=== PATIENT | male | born 1935 | race Caucasian/White ===

== ENCOUNTER 2017-06-04 20:23 | Emergency (ER) | payer MEDICARE, BC ==
[~2017-06-04] VITALS: Ht 172.7 cm; Wt 68.0 kg
[~2017-06-04 20:23] MED LIST: AMLO1CAP10 PO; AMLO5TAB2 PO; CARV25TA2 PO; CLIN300C8 PO; HYDR-2868 PO; HYDR12.553 PO; LISI-334 PO; LOSA1TAB19 PO; LOSA50TA6 PO; POTA10CA PO; SULF1TAB24 PO
[2017-06-04 21:54] LABS: BASO # 1.1 x10^3/uL (0.0-0.2); BASO % 1 % (0-3); EOS % 0 % (0-3); HEMATOCRIT 36.8 % (39.0-53.0); HEMOGLOBIN 12.1 g/dL (13.0-17.5); LYMPH # 121.1 x10^3/uL (1.0-4.8); LYMPH % 70 % (24-48); MEAN CORPUSCULAR HEMOGLOBIN 28 pg (25-35); MEAN CORPUSCULAR HGB CONC 33 g/dL (31-37); MEAN CORPUSCULAR VOLUME 85 fL (79-100); MONO # 9.6 x10^3/uL (0.0-1.1); MONO % 6 % (0-9); NEUT # 42.1 x10^3uL (1.8-7.7); NEUT % 24 % (31-73); PLATELET COUNT 396 x10^3/uL (140-400); RED BLOOD COUNT 4.35 x10^6/uL (4.30-5.70); RED CELL DISTRIBUTION WIDTH 15.9 % (11.5-14.5)
[2017-06-04 22:10] LABS: ALBUMIN/GLOBULIN RATIO 1.7 (1.0-1.7); ALK PHOS 119 U/L (46-116); ALT (SGPT) 27 U/L (16-63); ANION GAP 11 (6-14); AST (SGOT) 52 U/L (15-37); BLOOD UREA NITROGEN 45 mg/dL (8-26); BUN/CREATININE RATIO 35 (6-20); CARBON DIOXIDE 30 mmol/L (21-32); CHLORIDE 94 mmol/L (98-107); CREATININE 1.3 mg/dL (0.7-1.3); GLUCOSE 124 mg/dL (70-99); LIPASE 529 U/L (73-393); POTASSIUM 5.8 mmol/L (3.5-5.1); SODIUM 135 mmol/L (136-145); TOTAL BILIRUBIN 1.1 mg/dL (0.2-1.0); TOTAL PROTEIN 6.4 g/dL (6.4-8.2)
[2017-06-04] MEDS ORDERED: IOHEXOL 300 MG/ML 75 ML VIAL. IV ONE (22:30)
[2017-06-04 22:31] LABS: BILIRUBIN,URINE NEG (NEG); CLARITY,URINE HAZY; COLOR,URINE YELLOW; GLUCOSE,URINE NEG (NEG)
[2017-06-04 22:32] LABS: AMORPHOUS SEDIMENT,UR PRESENT /HPF; BACTERIA,URINE 0 /HPF (0-FEW); HYALINE CASTS, URINE MOD /HPF; NITRITE,URINE NEG (NEG); SQUAMOUS EPITHELIAL CELL,UR FEW /LPF; UROBILINOGEN,URINE 0.2 mg/dL (0.2 mg/dL)
[2017-06-04 22:57] LABS: % LYMPHS 62 % (24-48); % MONOS 3 % (0-10); % SEGS 31 % (35-66); PLT ESTIMATE ADEQUATE (ADEQUATE)
--- NOTE | 2017-06-04 23:29 | RAD ---
CT Abdomen and Pelvis With Intravenous Contrast: History: Prostate cancer abdominal and back pain. Comparison: None. Technique: After administration of intravenous contrast administration, 60 mL Omnipaque-300, CT of the abdomen and pelvis was performed. Exposure: One or more of the following individualized dose reduction techniques were utilized for this examination: 1. Automated exposure control 2. Adjustment of the mA and/or kV according to patient size 3. Use of iterative reconstruction technique Findings: Evaluation of enteric structures may be limited by lack of oral contrast. There is also motion artifact, limiting evaluation. Images of lower chest demonstrate left pleural effusion, incompletely assessed. Small right pleural effusion is seen. Left hepatic lobe demonstrates cyst. Spleen and bilateral adrenal glands unremarkable. Aortic atherosclerosis is seen. Pancreas is without evidence of inflammation. Bilateral adrenal glands unremarkable. Evaluation for mass is limited by lack of oral contrast. There is a right inguinal hernia contains a portion of the cecum, but there is no evidence of obstruction. There is a large left inguinal hernia which contains loops of small bowel and colon, but there is no evidence of obstruction. Urinary bladder is unremarkable. Prostate is mildly enlarged. There is moderate compression at T9, age-indeterminate. There is severe compression at T12, age indeterminate. There is moderate compression at L2, age indeterminate. Impression: 1. Left greater than right pleural effusions, incompletely assessed. 2. Limited evaluation of the abdomen and pelvis. 3. Large left inguinal hernia containing portion of the colon and small bowel. No obstruction is seen. 4. Small right inguinal hernia containing a portion of the cecum. 5. Vertebral fractures at T9, T12, and L2, age indeterminate. Electronically signed by: Jordan Cardenas MD (06/04/2017 11:26 PM) [facility]
--- NOTE | 2017-06-04 23:32 | RAD ---
CT thoracic spine without contrast TECHNIQUE: Helical noncontrast CT imaging of the thoracic spine was acquired. HISTORY: Back pain, falls, prostate cancer. FINDINGS: T9 mild vertebral body compression fracture with 50 percent height loss and heterogeneous linear bone sclerosis subjacent of the superior endplate, no lucent fracture cleft is evident, although this could be an acute fracture. T2 vertebral superior endplate mild central compression deformity with 10 percent height loss and mild bone sclerosis of indeterminate age, no lucent fracture cleft is evident although this could be an acute fracture. T12 compression fracture with vertebral plana of the anterior and central segments and bone sclerosis, with 6 mm of bone retropulsion contributing to severe spinal canal stenosis. This demonstrates a sagittal oriented vertical lucent fracture cleft suggesting that this is an acute fracture best seen on the coronal images. Upper lumbar spine demonstrates age-indeterminate L2 compression fracture mild bone sclerosis however there are intact endplate osteophytes which could indicate that it is chronic. The remainder of the thoracic spine demonstrates intact vertebral body height and alignment. Chronic lower thoracic posterior rib deformities likely healed fractures with additional sclerotic probable healed rib fractures somewhat obscured by patient motion. Left lateral sixth rib fracture of indeterminate age with mild cortical offset and could be acute. Minimal right pleural effusion. Large left pleural effusion. 1 cm hypodense left thyroid lobe nodule. Bulky bilateral axillary and subpectoral adenopathy largest lymph nodes have short axis diameters of up to 17 mm. Left lower lobe collapse due to pleural effusion. IMPRESSION: 1. Acute vertebra plana T12 vertebral body compression fracture as described above. There is extensive bone sclerosis which could be due to bony impaction from the fracture although given history of prostate cancer a pathologic fracture from metastasis cannot be excluded. 2. Age-indeterminate compression fractures of the T2 and T9 vertebra could be acute. 3. L2 vertebral body compression fracture likely chronic. 4. Large left pleural effusion with collapse of the left lower lobe. 5. Bilateral axillary adenopathy. 6. Possible acute left lateral sixth rib fracture. Bilateral healed old rib fractures. Exposure: One or more of the following individualized dose reduction techniques were utilized for this examination: 1. Automated exposure control 2. Adjustment of the mA and/or kV according to patient size 3. Use of iterative reconstruction technique Electronically signed by: Stephen Cole MD (06/04/2017 11:29 PM) [facility] [place]
[2017-06-04] MEDS ORDERED: IV NORMAL SALINE 1,000ML 1,000 ML IV ONE (23:45)
--- NOTE | 2017-06-05 00:01 | PHYS DOC ---
Past History Past Medical History: A-Fib, Cancer Past Surgical History: Cancer Surgery Alcohol Use: None Drug Use: None Adult General Chief Complaint Chief Complaint: WEAKNESS/GENERALIZED HPI HPI Patient is a 81 year old M who presents with back pain and weakness. EMS states the patient has been on sitting on the toilet for the past 24 hours to weak to get off. Patient complains of increased leg swelling and back pain. Family called for a welfare check. Patient denies any fevers. Patient denies any chest pain shortness of breath. Patient denies any trauma to the back. Patient lives at home by himself. 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 Review of Systems Review of Systems GEN: Weakness HEENT: Denies blurred vision, sore throat CV: Denies chest pain RESP: Denies shortness of air, cough GI: Denies n/v/d NEURO: Denies confusion, dizziness MSK: Leg swelling and upper back pain Current Medications Current Medications Current Medications Medications (Trade) Dose Ordered Sig/Marzena Start Time Stop Time Status Last Admin Dose Admin Iohexol (Omnipaque 300 Mg/ml) 75 ml 1X ONCE 06/04/17 22:30 06/04/17 22:31 DC 06/04/17 22:30 75 ML Sodium Chloride 1,000 ml @ 1,000 mls/hr 1X ONCE 06/04/17 23:45 06/05/17 00:44 UNV 06/04/17 23:46 1,000 MLS/HR Allergies Allergies Allergies Coded Allergies Type Severity Reaction Last Updated Verified No Known Drug Allergies 06/04/17 No Physical Exam Physical Exam GEN.: mod distress. Alert and oriented, cachectic HEENT: Head is normocephalic, atraumatic NECK: Supple. LUNGS: Decreased breath sounds bilaterally at the bases, coarse breath sounds at the apex. HEART: Tachycardia irregular irregular, S1, S2 present. Peripheral pulses intact ABDOMEN: Soft, generalized abdominal tenderness, hypoactive bowel sounds, no rebound tenderness. EXTREMITIES: Without any cyanosis, +2 pitting edema to lower extremity bilaterally NEUROLOGIC: Normal speech, normal tone PSYCHIATRIC: Normal affect, normal mood. SKIN: No ulcerations Current Patient Data Vital Signs Vital Signs Date Time Temp Pulse Resp B/P (MAP) Pulse Ox O2 Delivery O2 Flow Rate FiO2 06/04/17 23:10 117 28 156/85 (108) 92 Nasal Cannula 2.0 06/04/17 20:53 97.5 Lab Results Laboratory Tests Test 06/04/17 21:15 06/04/17 21:18 06/04/17 21:40 White Blood Count 174.0 x10^3/uL (4.0-11.0) *H Red Blood Count 4.35 x10^6/uL (4.30-5.70) Hemoglobin 12.1 g/dL (13.0-17.5) L Hematocrit 36.8 % (39.0-53.0) L Mean Corpuscular Volume 85 fL (79-100) Mean Corpuscular Hemoglobin 28 pg (25-35) Mean Corpuscular Hemoglobin Concent 33 g/dL (31-37) Red Cell Distribution Width 15.9 % (11.5-14.5) H Platelet Count 396 x10^3/uL (140-400) Neutrophils (%) (Auto) 24 % (31-73) L Lymphocytes (%) (Auto) 70 % (24-48) H Monocytes (%) (Auto) 6 % (0-9) Eosinophils (%) (Auto) 0 % (0-3) Basophils (%) (Auto) 1 % (0-3) Neutrophils # (Auto) 42.1 x10^3uL (1.8-7.7) H Lymphocytes # (Auto) 121.1 x10^3/uL (1.0-4.8) H Monocytes # (Auto) 9.6 x10^3/uL (0.0-1.1) H Eosinophils # (Auto) 0.0 x10^3/uL (0.0-0.7) Basophils # (Auto) 1.1 x10^3/uL (0.0-0.2) H Segmented Neutrophils % 31 % (35-66) L Lymphocytes % 62 % (24-48) H Monocytes % 3 % (0-10) Platelet Estimate Adequate (ADEQUATE) Sodium Level 135 mmol/L (136-145) L Potassium Level 5.8 mmol/L (3.5-5.1) H Chloride Level 94 mmol/L (98-107) L Carbon Dioxide Level 30 mmol/L (21-32) Anion Gap 11 (6-14) Blood Urea Nitrogen 45 mg/dL (8-26) H Creatinine 1.3 mg/dL (0.7-1.3) Estimated GFR (Cockcroft-Gault) 53.0 BUN/Creatinine Ratio 35 (6-20) H Glucose Level 124 mg/dL (70-99) H Lactic Acid Level 3.2 mmol/L (0.4-2.0) H Calcium Level 9.0 mg/dL (8.5-10.1) Total Bilirubin 1.1 mg/dL (0.2-1.0) H Aspartate Amino Transferase (AST) 52 U/L (15-37) H Alanine Aminotransferase (ALT) 27 U/L (16-63) Alkaline Phosphatase 119 U/L (46-116) H Troponin I Quantitative 0.126 ng/mL (0-0.055) H LV-Xnj-S-Type Natriuretic Peptide > 24464 pg/mL (0-449) H Total Protein 6.4 g/dL (6.4-8.2) Albumin 4.0 g/dL (3.4-5.0) Albumin/Globulin Ratio 1.7 (1.0-1.7) Lipase 529 U/L (73-393) H Urine Collection Type Unknown Urine Color Yellow Urine Clarity Hazy Urine pH 5.5 Urine Specific [place] 1.025 Urine Protein >100 mg/dl (NEG-TRACE) Urine Glucose (UA) Neg mg/dL (NEG) Urine Ketones (Stick) 15 mg/dL (NEG) Urine Blood Mod (NEG) Urine Nitrite Neg (NEG) Urine Bilirubin Neg (NEG) Urine Urobilinogen Dipstick 0.2 mg/dL (0.2 mg/dL) Urine Leukocyte Esterase Neg (NEG) Urine RBC 3-5 /HPF (0-2) Urine WBC 1-4 /HPF (0-4) Urine Squamous Epithelial Cells Few /LPF Urine Amorphous Sediment Present /HPF Urine Bacteria 0 /HPF (0-FEW) Urine Hyaline Casts Mod /HPF Urine Mucus Mod /LPF EKG EKG 204: EKG shows A. fib with RVR rate of 114 no STEMI[] Radiology/Procedures Radiology/Procedures CT scan of the abdomen pelvis Impression: 1. Left greater than right pleural effusions, incompletely assessed. 2. Limited evaluation of the abdomen and pelvis. 3. Large left inguinal hernia containing portion of the colon and small bowel. No obstruction is seen. 4. Small right inguinal hernia containing a portion of the cecum. 5. Vertebral fractures at T9, T12, and L2, age indeterminate.[] CT scan of the T-spine IMPRESSION: 1. Acute vertebra plana T12 vertebral body compression fracture as described above. There is extensive bone sclerosis which could be due to bony impaction from the fracture although given history of prostate cancer a pathologic fracture from metastasis cannot be excluded. 2. Age-indeterminate compression fractures of the T2 and T9 vertebra could be acute. 3. L2 vertebral body compression fracture likely chronic. 4. Large left pleural effusion with collapse of the left lower lobe. 5. Bilateral axillary adenopathy. 6. Possible acute left lateral sixth rib fracture. Bilateral healed old rib fractures. Course & Med Decision Making Course & Med Decision Making Pertinent Labs and Imaging studies reviewed. (See chart for details) ED course: Patient was seen and examined emergency room septic workup was ordered along with a CT scan of the T-spine, CT scan abdomen pelvis with contrast 2330: Patient was updated on lab work and findings of vertebral fractures and rib fractures and left-sided pleural effusion. Explained the patient he'll be transferred for further evaluation and management. 0019: Discussed CC/HP/PMH with Dr. Amaya and recommends admit to med telemetry and accepts transfer MDM: After reviewing the chart, CC/HPI/PMH, physical exam, [lab results], [ radiological results], I believe the patient needs to be admitted to hospital for acute fractures of vertebra and a large left pleural effusion which she can chipping to his severe weakness. Patient is be transferred to [facility] for the vertebral fractures, partial small bowel ejection, large left pleural effusion. Patient stable for transfer. [] Dragon Disclaimer Dragon Disclaimer This chart was dictated in whole or in part using Voice Recognition software in a busy, high-work load, and often noisy Emergency Department environment. It may contain unintended and wholly unrecognized errors or omissions. Departure Departure: Impression: Primary Impression: T12 vertebral fracture Additional Impressions: Pleural effusion on left Lactic acidosis Fracture of ribs, six Weakness CML (chronic myelocytic leukemia) Disposition: 02 XFER [facility] (Dr. Amaya) Condition: STABLE Referrals: JOSE STEELE MD (PCP) Problem Qualifiers KERVIN RIVERA DO Jun 05, 2017 00:01
[2017-06-05] MEDS ORDERED: IV NORMAL SALINE 1,000ML 1,000 ML IV ONE (00:15)
[2017-06-05] MEDS ORDERED: IV NORMAL SALINE 50ML 50 ML ONE (01:09)
[2017-06-05] MEDS ORDERED: cefTRIAXone SODIUM 1 GM VIAL IV ONE (01:09)
[2017-06-05] MEDS ORDERED: ASPIRIN 81 MG TAB.CHEW PO ONE (01:15)
[2017-06-05] MEDS ORDERED: VANCOMYCIN 1 GM in IV NORMAL SALINE 250ML 250 ML IV ONE (02:00)
[2017-06-05] MEDS ORDERED: PIPERACILLIN/TAZOBACTAM 3.375 GM in IV NORMAL SALINE 50ML 50 ML IV ONE (02:00)
[2017-06-05] MEDS ORDERED: VANCOMYCIN 1 GM VIAL. ONE (02:08)
[2017-06-05] MEDS ORDERED: IV NORMAL SALINE 250ML 250 ML ONE (02:09)
[2017-06-05] MEDS ORDERED: PIPERACILLIN/TAZOBACTAM 3.375 GM VIAL IV ONE (02:19)
[2017-06-05 02:35] VITALS: BP 158/87
--- NOTE | 2017-06-05 07:50 | RAD ---
Indication weakness. A single view of the chest was obtained. No prior imaging of the chest is available. There is a moderately large left pleural effusion. There is associated volume loss in the left lung likely reflecting passive atelectasis associated with the pleural fluid. A focal process in the right lung is not seen. Mildly tortuous thoracic aorta is noted. No gross congestive heart failure is seen IMPRESSION: Moderately large left pleural effusion
--- NOTE | 2017-06-05 09:59 | EKG ---
[facility] [address] [place] [id number] Test Date: 2017-06-04 Test Time: 20:46:21 Pat Name: BHASKAR YEPEZ Department: Room: Gender: M Research/Program Director: : 1935 Requested By: KERVIN RIVERA Order Number: [id number] Reading MD: Measurements Intervals [place] Rate: P: WA: QRS: QRSD: T: QT: QTc: Interpretive Statements
== END 2017-06-05 03:10 | disposition short-term general hospital (02) ==
LOC: ER 20:23
DX: S22.089A Unspecified fracture of T11-T12 vertebra, initial encounter for closed fracture (principal); S22.42XA Multiple fractures of ribs, left side, initial encounter for closed fracture; J90 Pleural effusion, not elsewhere classified; E87.2 Acidosis; C92.10 Chronic myeloid leukemia, BCR/ABL-positive, not having achieved remission; I48.91 Unspecified atrial fibrillation; X58.XXXA Exposure to other specified factors, initial encounter; Y93.89 Activity, other specified; Y99.8 Other external cause status; Y92.89 Other specified places as the place of occurrence of the external cause
CPT/HCPCS: 36415; 71010; 72128; 74177; 80053; 81001; 83605; 83690; 83880; 84484; 85007; 85025; 87040; 93005; 96361; 96365; 96367; 96368; 99285; J0696; J2543; J3370; J7050; P9612; Q9967; J7030